=== PATIENT | female | born 1980 | race Two or more races ===

== ENCOUNTER 2018-05-12 12:58 | Emergency (ER) | payer SELFPAY ==
[2018-05-12] MEDS ORDERED: NORMAL SALINE 1000 ML 1,000 ML IV ONE ×2 (13:53→15:55)
[2018-05-12] MEDS ORDERED: METOCLOPRAMIDE HCL INJ/PF 10 MG/2 ML SDV IV ONE (13:53)
[2018-05-12] MEDS ORDERED: KETOROLAC TROMETHAMINE INJ/PF 30 MG/1 ML SDV IV ONE (13:54)
--- NOTE | 2018-05-12 13:55 | ER Document Report ---
ED Medical Screen (RME) - General Chief Complaint: Headache Stated Complaint: NECK PAIN/HEADACHE Time Seen by Provider: 05/12/18 13:49 - HPI Notes: 05/12/18 13:54 Patient is a 37-year-old female that presents to the emergency department for chief complaint of headache and abdominal pain. Patient reports abdominal pain for 1 month. She states it is crampy like menstrual cycle but has been constant. She also states for the last few days she has had a right-sided headache that radiates down into her right neck. She denies fevers or chills ROS: GENERAL: Denies fever of chills CV: Denies chest pain PHYSICAL EXAMINATION: GENERAL: Well-appearing, well-nourished and in no acute distress. HEAD: Atraumatic, normocephalic. EYES: Pupils equal round extraocular movements intact, conjunctiva are normal. ENT: Nares patent NECK: Normal range of motion LUNGS: No respiratory distress Musculoskeletal: Normal range of motion NEUROLOGICAL: Normal speech, normal gait. PSYCH: Normal mood, normal affect. MDM: Patient seen and examined for rapid initial assessment. Vital signs reviewed. A comprehensive ED assessment and evaluation of the patient, analysis of test results and completion of the medical decision making process will be conducted by additional ED providers. - Related Data Allergies/Adverse Reactions: No Known Allergies Allergy (Unverified 05/12/18 12:59) Past Medical History - Social History Chew tobacco use (# tins/day): No Frequency of alcohol use: None Drug Abuse: None Renal/ Medical History: Denies: Hx Peritoneal Dialysis Physical Exam - Vital signs Vitals: Temp Pulse Resp Pulse Ox 98.2 F 65 18 96 05/12/18 13:28 05/12/18 13:28 05/12/18 13:28 05/12/18 13:28 Course - Vital Signs Vital signs: Temp Pulse Resp BP Pulse Ox 98.2 F 65 18 96 05/12/18 13:28 05/12/18 13:28 05/12/18 13:28 05/12/18 13:28 Doctor's Discharge - Discharge Referrals: LOCALMD,NO [Primary Care Provider] - Follow up as needed
[2018-05-12 16:09] LABS: APPEARANCE,URINE SLIGHTLY-CLOUDY; BILIRUBIN,URINE NEGATIVE (NEGATIVE); COLOR,URINE STRAW; GLUCOSE, URINE NEGATIVE (NEGATIVE); KETONES,URINE NEGATIVE (NEGATIVE); LEUKOCYTE ESTERASE,URINE LARGE (NEGATIVE); NITRITE,URINE NEGATIVE (NEGATIVE); PROTEIN,URINE NEGATIVE (NEGATIVE); UROBILINOGEN,URINE NEGATIVE mg/dL (<2.0)
--- NOTE | 2018-05-12 17:21 | RADIOLOGY REPORT (SQ) ---
EXAM DESCRIPTION: KUB/ABDOMEN (SINGLE VIEW) COMPLETED DATE/TIME: 05/12/2018 2:11 pm REASON FOR STUDY: Abdominal pain. COMPARISON: None. EXAM PARAMETERS: NUMBER OF VIEWS: One view. TECHNIQUE: Supine radiographic image of the abdomen acquired. LIMITATIONS: None. FINDINGS: BOWEL GAS PATTERN: Nonobstructive gas pattern. Considerable fecal material is present in the colon. CALCIFICATIONS: No suspicious calcifications. SOFT TISSUES: No gross mass or suggestion of organomegaly. HARDWARE: None. BONES: No acute fracture. No worrisome bone lesions. OTHER: No other significant finding. IMPRESSION: Constipation. TECHNICAL DOCUMENTATION: JOB ID: [id number] [employer]- All Rights Reserved Reading location - IP/workstation name: [email or web address]
[2018-05-12 17:29] LABS: ABSOLUTE EOSINOPHILS # (AUTO) 0.1 10^3/uL (0.0-0.6); ABSOLUTE LYMPHOCYTES (AUTO) 2.7 10^3/uL (0.5-4.7); ABSOLUTE MONOCYTES (AUTO) 0.3 10^3/uL (0.1-1.4); ABSOLUTE NEUT (AUTO) 4.5 10^3/uL (1.7-8.2); BASOPHILS % (AUTO) 0.2 % (0-2); EOSINOPHILS % (AUTO) 0.9 % (0-6); HEMATOCRIT 35.8 % (36.0-47.0); LYMPHOCYTES % (AUTO) 35.8 % (13-45); MEAN CORPUSCULAR HEMOGLOBIN 28.1 pg (27.0-33.4); MEAN CORPUSCULAR HGB CONC 33.4 g/dL (32.0-36.0); MEAN CORPUSCULAR VOLUME 84 fl (80-97); MONOCYTES % (AUTO) 4.5 % (3-13); PLATELET COUNT 255 10^3/uL (150-450); RED BLOOD COUNT 4.25 10^6/uL (3.72-5.28); RED CELL DISTRIBUTION WIDTH 13.2 % (11.5-14.0); SEGMENTED NEUTROPHILS % (AUTO) 58.6 % (42-78); TOTAL CELLS COUNTED % (AUTO) 100 %; WHITE BLOOD COUNT 7.7 10^3/uL (4.0-10.5)
[2018-05-12 17:47] LABS: ALANINE AMINOTRANSFERASE 17 U/L (9-52); ALBUMIN 3.5 g/dL (3.5-5.0); ALKALINE PHOSPHATASE 87 U/L (38-126); ANION GAP 6 (5-19); ASPARTATE AMINO TRANSFERASE 18 U/L (14-36); BILIRUBIN,DIRECT 0.1 mg/dL (0.0-0.4); BILIRUBIN,TOTAL 0.3 mg/dL (0.2-1.3); BLOOD UREA NITROGEN 9 mg/dL (7-20); CALCIUM 8.2 mg/dL (8.4-10.2); CARBON DIOXIDE 28 mmol/L (22-30); CHLORIDE 107 mmol/L (98-107); GLUCOSE 133 mg/dL (75-110); SODIUM 140.8 mmol/L (137-145); TOTAL PROTEIN 6.6 g/dL (6.3-8.2)
--- NOTE | 2018-05-12 19:33 | RADIOLOGY REPORT (SQ) ---
EXAM DESCRIPTION: CT HEAD WITHOUT COMPLETED DATE/TIME: 05/12/2018 7:23 pm REASON FOR STUDY: left sided headache COMPARISON: None. TECHNIQUE: Axial images acquired through the brain without intravenous contrast. Images reviewed wi th bone, brain and subdural windows. Additional sagittal and coronal reconstructions were generated. Images stored on PACS. All CT scanners at this facility use dose modulation, iterative reconstruction, and/or weight based d osing when appropriate to reduce radiation dose to as low as reasonably achievable (ALARA). [facility]: Dose Right [facility]: CareDose [facility]: Dose Right [facility]: Teradose 4D [facility]: Smart [employer] RADIATION DOSE: CT Rad equipment meets quality standard of care and radiation dose reduction techniq ues were employed. CTDIvol: 53.2 mGy. DLP: 1044 mGy-cm. mGy. LIMITATIONS: None. FINDINGS: VENTRICLES: Normal size and contour. CEREBRUM: No masses. No hemorrhage. No midline shift. No evidence for acute infarction. Normal gra y/white matter differentiation. No areas of low density in the white matter. CEREBELLUM: No masses. No hemorrhage. No alteration of density. No evidence for acute infarction. EXTRAAXIAL SPACES: No fluid collections. No masses. ORBITS AND GLOBE: No intra- or extraconal masses. Normal contour of globe without masses. CALVARIUM: No fracture. PARANASAL SINUSES: No fluid or mucosal thickening. SOFT TISSUES: No mass or hematoma. OTHER: No other significant finding. IMPRESSION: NORMAL BRAIN CT WITHOUT CONTRAST. EVIDENCE OF ACUTE STROKE: NO. COMMENT: Quality ID # [id number]: Final reports with documentation of one or more dose reduction techniques (e.g., Automated exposure control, adjustment of the mA and/or kV according to patient size, use of iterative reconstruction technique) TECHNICAL DOCUMENTATION: JOB ID: [id number] [employer]- All Rights Reserved Reading location - IP/workstation name: [email or web address]
[2018-05-12] MEDS ORDERED: CEFTRIAXONE INJ 1000 MG VIAL IV STA (19:56)
[2018-05-12] MEDS ORDERED: CEFTRIAXONE 1 GM/D5W RTU 1 GM/50 ML RTUPB IV ONE (20:10)
--- NOTE | 2018-05-12 20:33 | ER Document Report ---
ED Headache - General Chief Complaint: Headache Stated Complaint: NECK PAIN/HEADACHE Time Seen by Provider: 05/12/18 13:49 Mode of Arrival: Ambulatory Information source: Patient Notes: Patient is a 37-year-old female who is Moldovan-speaking primarily does understand some Brazilian. Her daughter who is approximately 18 speaks fluent Brazilian is her mill tender second operator. Patient has multiple somatic type complaints however what her original presentation for ER was was a right-sided headache that was u nrelenting for 2 days. She also complained of cramping in the lower pelvic area times 1 month and she has had some lightheadedness and mild dizziness when going from a laying down to standing up position for the last month and a half. Daughter states that she is not get as much energy as she used to have. Patient denies any visual changes she denies any loss of urine or stool the headache is right-sided right temporal. Denies any pain behind the eye. Denies any nausea or vomiting. She also denies dysuria and she denies discharge. She denies any past medical history is on no medications currently. She has had one surgery which was a cholecystectomy. TRAVEL OUTSIDE OF THE [place] IN LAST 30 DAYS: No - HPI Patient complains to provider of: Headache Patient reports: No: Frequent migraines, Hx chronic headaches, Occasional migraines, Prior CVA, Prior hemorrhage, Prior TBI, DIETITIAN Shunt Onset: Other - 2 days Onset was: Gradual Timing: Still present Quality of pain: Achy, Pressure, Throbbing Severity: Moderate Pain Level: 3 Context: denies: Head injury, Insect bite, Meningitis exposure, Tick bite Preceding symptoms: denies: Typical of prior aura(s) Worse/persistent since: 2 days ago Associated symptoms: Dizzy, Photophobia. denies: Double/blurred vision, Tingling/numb sensation, Trouble walking Exacerbated by: Light Similar symptoms previously: No Recently seen / treated by doctor: No - Related Data Allergies/Adverse Reactions: No Known Allergies Allergy (Verified 05/12/18 13:55) Past Medical History - General Information source: Patient, Relative Last Menstrual Period: April 28, 2018 - Social History Smoking Status: Never Smoker Cigarette use (# per day): No Chew tobacco use (# tins/day): No Smoking Education Provided: No Frequency of alcohol use: None Drug Abuse: None Lives with: Family Family History: Reviewed & Not Pertinent Patient has suicidal ideation: No Patient has homicidal ideation: No Renal/ Medical History: Denies: Hx Peritoneal Dialysis Past Surgical History: Reports: Hx Abdominal Surgery - cant remeber name Review of Systems - Review of Systems Constitutional: No symptoms reported EENT: No symptoms reported Cardiovascular: No symptoms reported Respiratory: No symptoms reported Gastrointestinal: See HPI, Abdominal pain Genitourinary: No symptoms reported Female Genitourinary: See HPI, Other - Pelvic cramping Musculoskeletal: No symptoms reported Skin: No symptoms reported Hematologic/Lymphatic: No symptoms reported Neurological/Psychological: See HPI, Headaches. denies: Confusion, Anxiety -: Yes All other systems reviewed and negative Physical Exam - Vital signs Vitals: Temp Pulse Resp Pulse Ox 98.2 F 65 18 96 05/12/18 13:28 05/12/18 13:28 05/12/18 13:28 05/12/18 13:28 Blood pressure at time of these first vital signs showed 105/45. Interpretation: Hypotensive - Notes Notes: PHYSICAL EXAMINATION: GENERAL: Patient is a well-nourished well-developed slightly overweight 37-year- old female she is in no apparent distress on physical examination today she does however appear to be not feeling well. She appeared to look weak and uncomfortable. HEAD: Atraumatic, normocephalic. Examination of the head especially on the right side frontal area and temporal shows no sensitivity to touch. No sign of a rash. EYES: Pupils equal round and reactive to light, extraocular movements intact, conjunctiva are normal. ENT: Nares patent, oropharynx clear without exudates. Moist mucous membranes. NECK: Normal range of motion, supple without lymphadenopathy LUNGS: Breath sounds clear to auscultation bilaterally and equal. No wheezes rales or rhonchi. HEART: Regular rate and rhythm without murmurs ABDOMEN: Soft, nondistended abdomen. No guarding, no rebound. No masses appreciated. Mild tenderness to palpation suprapubic to very lower areas of the lower quadrants. Female : deferred Musculoskeletal: Normal range of motion, no pitting or edema. No cyanosis. NEUROLOGICAL: Normal speech, normal gait. Normal sensory, motor exams patient's NIH score was 0. PSYCH: Normal mood, flat affect SKIN: Warm, Dry, normal turgor, no rashes or lesions noted. Course - Re-evaluation Re-evalutation: 05/13/18 14:44 Patient course of stay was somewhat complicated. Patient was noted to have a low blood pressure on arrival to the room. Originally we did orthostatics on her and heart rate stayed the same 62-63 on all 3. But her blood pressures went from 97/48 to sitting 89/56 standing 89/53. That was after the first bolus of fluids. After the second bolus of fluids patient's blood pressure went 106/60 96/55, 96/78 standing. While we were giving patient fluids we did plan to check her labs and she did come back with a urine that showed very large amount of leukocytes. And it was a relatively good clean catch. Her x-ray of her abdomen was negative and it was decided to go ahead and send her for CT. Her CT of her head came back negative as well. However when the low blood pressures were noted in the urine came back with sepsis workup high leukocytes and I will started to worry about the possibility of sepsis. I then added on labs that would complete a septic type workup. All of which were normal. Patient's white count was normal. After all studies were back I readdress the blood pressures with Dr. Keyanna Pena and given the patient is feeling much better she actually has pinked up in is interacting more daughter says that she is back more to her normal self that she has not been there in a few weeks. The headache had dissipated down to a 1 and she was ready to go home according to her daughter. In talking to Dr. Pena we come to the conclusion the patient may just run normal blood pressures are low. She did request that we attempt to try to get a systolic blood pressure 100 prior to discharge and we tried and were not successful in getting it all the way up there. Patient was really pushing to leave and I cannot find a reason to make her sign out AMA since all your blood pressures were running about the same. Our discharge blood pressure was 97/42 and again patient looked fantastic she had become more lively. I have discussed with her about the [facility] and have explained it to her daughter in depth and suggested highly that she go there. Patient indicated to me that she was interested and would follow-up with him. I did also informed the patient and her daughter that if she had any change in her status of feeling dizzy again or having headaches continued on return to ER for a reevaluation. 05/13/18 14:46 - Vital Signs Vital signs: Temp Pulse Resp BP Pulse Ox 98.0 F 76 16 97/42 L 99 05/12/18 21:19 05/12/18 21:19 18 21:19 05/12/18 21:19 05/12/18 21:19 - Laboratory Result Diagrams: 05/12/18 17:00 05/12/18 17:00 Laboratory results interpreted by me: 05/12/18 05/12/18 05/12/18 15:55 17:00 17:00 Hct 35.8 L Glucose 133 H Calcium 8.2 L Ur Leukocyte Esterase LARGE H Discharge - Discharge Clinical Impression: UTI (urinary tract infection) Qualifiers: Urinary tract infection type: acute cystitis Hematuria presence: without hematuria Qualified Code(s): N30.00 - Acute cystitis without hematuria Headache Qualifiers: Headache type: cluster Headache chronicity pattern: unspecified pattern Intractability: not intractable Qualified Code(s): G44.009 - Cluster headache syndrome, unspecified, not intractable Constipation Qualifiers: Constipation type: unspecified constipation type Qualified Code(s): K59.00 - Constipation, unspecified Condition: Stable Disposition: HOME, SELF-CARE Instructions: Constipation ([facility]), Headache ([facility]), Trimethoprim-Sulfa ([facility]), Urinary Tract Infection ([facility]) Additional Instructions: Transport system [place] ABDOMINAL PAIN: There are many causes of abdominal pain. Pain can mean a serious problem requiring surgery (such as appendicitis). It can also be an innocent problem that goes away on its own (such as a viral infection). Often, time must pass to determine the cause of pain. The physician does not feel that hospitalization is necessary, at present. Things may change within the next 24 hours. Call the doctor or come back for re- examination if any problems occur, such as: (1) Pain that becomes more severe, steady, or becomes concentrated in one specific area. Also, pain that is more severe with movement or coughing. HEADACHE: The physician does not feel that the headache you are experiencing has a serious underlying cause. Most headaches are due to emotional stress, with resultant muscle tension (tension headache). Occasionally, headaches are secondary to changes in the blood vessels of the scalp (vascular headache and migraine headache). Sometimes, a headache is the first symptom of another developing illness, such as a viral infection. You have no evidence of stroke, bleeding, meningitis, or other serious cause of your headache. The treatment of headaches varies with the severity and cause of the pain. Not all headaches need pain shots. In fact, there is evidence that using narcotics for headaches may make them worse in the long run. The physician will determine the therapy that's in your best interest. If you develop a fever, if the headache is different from any you've previously experienced, or if the headache progressively worsens, then call your physician at once or go to the emergency room. REGLAN (METOCLOPRAMIDE): Reglan has been prescribed. This medicine affects the stomach and i ntestines. It can be used to treat nausea and vomiting, to prevent reflux of stomach acid up into the esophagus, or to increase the contractions of the stomach and intestines. It is often prescribed for esophagitis, and for paralysis of the stomach in diabetics. Reglan can cause either mild restlessness or drowsiness. You should contact the doctor at once if you become extremely restless, anxious, or cannot sleep, or if you develop uncontrollable motions of the lips, tongue, or jaw. Do not take alcohol with this medicine. Do not drive or operate machinery until you have been taking this medicine long enough to know how it affects you. Call the doctor if you develop abdominal pains, lightheadedness, black stool, or blood in the stool or vomitus. USE OF DIPHENHYDRAMINE: Diphenhydramine (Benadryl) is an antihistamine and has been recommended to help treat your headache and to prevent side effects of other medications used to treat headaches. The medication can be repeated four times daily. Age Elixir (12.5 mg/tsp) 25 mg pill adult 1-2 tabs Antihistamines may cause drowsiness, especially with the first dose. Do not operate machinery or drive while under the effects of the medication. Do no t combine the medication with alcohol, or with any other medication without talking to your doctor. ANTINAUSEA MEDICATION: You have been given a medication to suppress nausea and vomiting. This type of medication can be given as a shot, pill, or suppository. It will usually last for many hours. Pills and shots usually last six to eight hours, suppositories last about 12 hours. For the typical illness, only one or two doses of the medication may be necessary. Mild lightheadedness may occur. This type of medicine can cause drowsiness. Do not drive or operate dangerous machinery while under its influence. Do not mix with alcohol. See your doctor at once if you have muscle spasms or tightness, or uncontrollable motions (particularly of the neck, mouth, or jaw). Persistent vomiting or severe lightheadedness should also be evaluated by the physician. INTRAVENOUS COMPAZINE FOR HEADACHE: You have received therapy for headaches, using intravenous Compazine. This treatment is dramatically successful in relieving the headache in about 50 percent of cases. When it works, it provides a rapid method of eliminating the headache without resorting to narcotics (and the problems associated with them). Most patients still feel fully alert after the Compazine, but others may be slightly drowsy. It's best not to drive or work with machinery for six to eight hours. Do not take alcohol or other medication unless you discuss it with the doctor. If you develop tightness and spasms in your muscles, especially the neck and tongue, you should return. This is a side effect which can be treated. TORADOL INJECTION: You have been given an injection of ketorolac tromethamine (Toradol). This is an excellent, safe drug for pain control. It also has potent antiinflammatory action. You should have significant pain relief within about one hour. Toradol is not addicting and is non-sedating. It does not interfere with driving or work. Call or return if you develop itching, hives, shortness of breath, or rash. PAIN MEDICATION INJECTION: You have received an injection of a pain medication. You should experience significant pain relief within 45 minutes. This drug is a narcotic -- it will impair your judgement, slow your reaction time and make you sleepy (as well as relieve your pain). Narcotics also can cause nausea. You should not drive, work with machinery, or perform any task requiring mental alertness until all effects of the medication are gone -- six to eight hours. Do not take any alcohol, or sedatives, and do not take any other medication without checking with your physician. ORAL NARCOTIC MEDICATION: You have been given a prescription for pain control. This medication is a narcotic. It's best taken with food, as nausea can result if taken on an empty stomach. Don't operate machinery or drive within six hours of taking this medication. Do not combine this medicine with alcohol, or with any medication which can cause sedation (such as cold tablets or sleeping pills) unless you get permission from the physician. Narcotics tend to cause constipation. If possible, drink plenty of fluids and eat a diet high in fiber and fruits. Please be aware that prescription narcotics also have the potential for abuse. People become addicted to these medications because of the general sense of wellbeing that they induce. This feeling along with a significant reduction in tension, anxiety, and aggression provides a stimulating seductive quality to these drugs. Once your pain is under control, we encourage you to discard your unused narcotics. FOLLOW-UP CARE: If you have been referred to a physician for follow-up care, call the physicians office for an appointment as you were instructed or within the next two days. If you experience worsening or a significant change in your symptoms, notify the physician immediately or return to the Emergency Department at any time for re-evaluation. (2) Vomiting that persists or becomes more frequent. (3) Blood in the vomitus, urine, or bowel movements. Blood in the stool may have a tarry or black appearance. (4) Shaking chills or fever greater than 100 degrees F. (5) The abdomen becomes more distended or swollen. (6) Bowel movements cease. (7) Failure to improve as expected. NORMAL EXAM AND WORKUP: At this time, your examination and workup show no significant abnormality. No significant abnormal physical findings are noted. All laboratory, EKG, and imaging (x-ray, CT scans, ultrasound) studies that were ordered show no significant abnormality. Although your examination and all studies that were ordered showed no significant abnormal finding, there are no examinations and no studies that are 100% accurate. There is always the possibility that some abnormality could exist and not be detected with physical examination or within the limits and capabilities of laboratory and other studies. You should return or follow up as you were instructed on your visit today for further evaluation if your symptoms do not resolve. CONSTIPATION: Constipation is a common problem. It is especially likely as you get older. Constipation is a common cause of abdominal pain, but sometimes causes no symptoms at all. Causes of constipation include certain medications, dehydration, diets, inactivity, and low-fiber intake. Rarely, it can be a symptom of underlying disease. The physician has evaluated you for this. Avoid constipation by eating a diet high in fiber, fruits, and vegetables. Drink plenty of liquids. Get regular exercise. If possible, avoid constipating medicines like narcotic pain medication. Some vitamin tablets can cause constipation. Stool softeners may be needed for difficult cases. An excellent stool softener is Konsyl which is available at [employer], and [employer]. Just add a teaspoon to a glass of pineapple or orange juice daily or twice a day if needed. Laxatives are useful for occasional constipation. You should use them only when necessary. Too-frequent use can make your bowels dependent on them. Some over the counter laxatives available without prescription are: Milk of Magnesia, 1-2 tablespoons twice a day Dulcolax, 5 mg pill or 10 mg suppository. Citrate of Magnesia, 4-5 ounces a day for a day or two For acute constipation, Fleet's Enemas and Dulcolax suppositories are helpful. Chronic, termite inspector use of laxatives or enemas is not a good idea. Your bowel may become dependant on them. You do not need to have a bowel movement every day. Many people do fine with a bowel movement every three or four days. You should call your doctor or return for re-evaluation if you pass blood in the stool, or if you develop fever or increasing abdominal pain. BULK LAXATIVES: Bulk laxatives make the stool softer and bulkier. They're useful for prev enting constipation. You can choose between psyllium, methylcellulose, and polycarbophil. They are available without a prescription. Psyllium brand names include Konsyl, Metamucil, Perdiem, Effer-Syllium and Hydrocil. It's available as powder, flavored drink powder, or chewable. The usual dose of psyllium powder is one heaping teaspoon in water each morning, increasing to twice a day if needed. Buda juice can disguise the slightly grainy texture. Methylcellulose is marketed as Citrucel and other brands. The average dose is two grams in a cup of water one to three times a day. Polycarbophil is marketed as Fiber-Con. Take two tablets with a cup of water one to three times a day. LAXATIVE: A laxative agent has been prescribed for your condition. This should resu lt in passage of stool within 12 hours. Some mild intestinal cramping is common as the hard stool begins to move. You may have loose or runny stools for a short time. Contact your doctor if there is severe cramping, vomiting, or passage of blood. Return for further care if this medicine fails to improve your condition. FOLLOW-UP CARE: If you have been referred to a physician for follow-up care, call the physicians office for an appointment as you were instructed or within the next two days. If you experience worsening or a significant change in your symptoms, notify the physician immediately or return to the Emergency Department at any time for re-evaluation.URINARY TRACT INFECTION: Your evaluation indicates that you have a urinary tract infection. This is due to germs growing in the bladder. This is a common problem. This infection usually responds quickly to antibiotics. Your antibiotic should be taken exactly as prescribed. Drink plenty of fluids -- three to four quarts a day. Occasionally, a bladder anesthetic will be prescribed to help stop the feeling of urgency until the antibiotic has a chance to clear the infection. This may cause your urine to be dark orange. Certain urine infections require a culture. If the doctor obtained a c ulture, the results will be back in two days. You should call to see if a change in treatment is needed. A repeat urinalysis after you finish treatment is often recommended. The physician will let you know if further testing is required. Call the doctor if you develop fever, chills, flank pain, inability to urinate, or blood in the urine. ANTIBIOTIC THERAPY: You have been given an antibiotic prescription. It's important that you take all the medication, unless instructed otherwise by your physician. Failure to complete the entire course can result in relapse of your condition. Common side effects of antibiotics include nausea, intestinal cramping, or diarrhea. Women may develop vaginal yeast infections, and babies can get yeast (thrush) in the mouth following the use of antibiotics. Contact your physician if you develop significant side effects from this medication. Allergy to this antibiotic can result in hives, wheezing, faintness, or itching. If symptoms of allergy occur, stop the medication and call the doctor. TRIMETHOPRIM-SULFA: You have been given a prescription for trimethoprim-sulfa (TMS, Septra, Bactrim). This is a combination antibiotic of the sulfa class, often used for urinary tract infections, middle ear infections, bronchitis, shigella intestinal infection, and Pneumocystis pneumonia. TMS is usually well-tolerated. Occasional side effects include nausea and decreased appetite. Septra is not recommended for infants less than two months of age. Do not take this medication if you have experienced severe side effects or allergy to sulfa medicine. You should stop this medicine at once and contact your physician if you develop any rash, joint pain, shortness of breath, bruising, or jaundice (yellow color in the skin), or if you develop any other new or unusual symptoms. FOLLOW-UP CARE: If you have been referred to a physician for follow-up care, call the physicians office for an appointment as you were instructed or within the next two days. If you experience worsening or a significant change in your symptoms, notify the physician immediately or return to the Emergency Department at any time for re-evaluation. Also as we discussed you are constipated we need to clean out some of that. 1 o f the gentlest ways to do this is with generic version milk of magnesia. Each bottle comes with a cap on it that looks like a shot Glass. Trying to move those shot Glass capfuls before going to bed followed by a glass of warm water. In the morning when you wake up drink a hot coffee or hot tea which will stimulate you to have a nice fluid bowel movement very gently. You may do this every other day for 1 week. Or until you feel like you have gotten better. You may also start MiraLAX which is [id number] follow directions. Prescriptions: Fluconazole [Diflucan] 150 mg PO ONCE PRN #1 tablet PRN Reason: Sulfamethoxazole/Trimethoprim [Bactrim Ds Tablet] 1 each PO BID 7 Days #14 tablet Referrals: BRIAN,NO [NO LOCAL MD] - [facility] [NO LOCAL MD] - Follow up as needed Print Language: Moldovan
[2018-05-12 21:20] VITALS: BP 97/42
== END 2018-05-12 21:20 | disposition home or self-care (01) ==
LOC: ER 12:58
DX: G44.009 Cluster headache syndrome, unspecified, not intractable (principal); N30.00 Acute cystitis without hematuria; K59.00 Constipation, unspecified; R10.2 Pelvic and perineal pain; I95.9 Hypotension, unspecified; R42 Dizziness and giddiness; H53.149 Visual discomfort, unspecified; E66.3 Overweight; Z90.49 Acquired absence of other specified parts of digestive tract
CPT/HCPCS: 99284; 96361; 96375; 96365; 36415; 87040; 85025; 81025; 87077; 80053; 81001; 83605; 74018; 70450; J1885; J2765; J7030; J0696

== ENCOUNTER 2020-02-14 11:01 | Outpatient (CLI) | payer SELFPAY ==
--- NOTE | 2020-02-14 12:23 | Non Stress Test Report ---
Non Stress Test Datetime Report Generated by CPN: 02/14/2020 12:23 DEMOGRAPHIC Test Number: 1 EGA NST: 35.6 INDICATION Indication for Study (NST) Other: AMA VITAL SIGNS Temperature - NST: 98.3 Pulse - NST: 71 RESP - NST: 16 NBPSYS NST: 110 NBPDIA NST: 59 MONITORING Monitor Explained: Monitor Explained Time on Monitor: 02/14/2020 11:15 Time off Monitor: 02/14/2020 11:48 NST Duration: 33 NST INTERVENTIONS NST Interventions: PO Hydration Physician Notified NST: A. Workman, CNM BABY A: [id number] BABY A Movement : Present Contraction Frequency : irregular FHR Baseline : 130 Accelerations : 15X15 Decelerations : None Variability : Moderate 6-25bpm NST Review: Meets Criteria for Reactive NST NST Review and Verified By : SAman NST Results: Reactive NST REPORT Report Trigger: Send Report
--- NOTE | 2020-02-14 12:24 | RADIOLOGY REPORT (SQ) ---
EXAM DESCRIPTION: U/S OB LIMITED IMAGES COMPLETED DATE/TIME: 02/14/2020 12:11 pm REASON FOR STUDY: MONY COMPARISON: None. TECHNIQUE: Limited transabdominal grayscale ultrasound for evaluation of specific requested obstetri don parameters. LIMITATIONS: None. FINDINGS: CERVICAL LENGTH: Not applicable. Greater than 20 weeks. Need transvaginal study if indicat ed. MONY: 9.8 cm cm. FHR: 136 beats per minute. PRESENTATION: Cephalic. PLACENTA: Anterior ANATOMY: Not assessed OTHER: No other significant findings. IMPRESSION: LIMITED OBSTETRICAL ULTRASOUND WITH MEASURED PARAMETERS DELINEATED ABOVE. Trimester of : Third trimester - 28 weeks to delivery. TECHNICAL DOCUMENTATION: JOB ID: [id number] 2010 [employer]- All Rights Reserved Reading location - IP/workstation name: [email or web address]
== END 2020-02-14 12:21 | disposition home or self-care (01) ==
LOC: LC 11:01
PROVIDERS: ATTEND Obstetrics & Gynecology
DX: O09.523 Supervision of elderly multigravida, third trimester (principal); Z3A.35 35 weeks gestation of pregnancy
CPT/HCPCS: 59025; 76815